=== PATIENT | female | born 1985 | race Caucasian/White ===

== ENCOUNTER 2018-08-06 09:07 | Day surgery (SDC) | payer OTHER ==
[2018-08-05 17:37] VITALS: BMI 18.1
[2018-08-06] MEDS ORDERED: Doxycycline 100 MG CAP PO SCH (10:30)
[2018-08-06 10:32] LABS: #Eosinphils 0.1 thou/uL (0.0-0.7); #Lymphocytes 1.7 thou/uL (1.20-3.40); #Monocytes 0.3 thou/uL (0.11-0.59); #Neutrophils 2.2 thou/uL (1.40-6.50); %Basophils 0.4 % (0.0-1.0); %Eosinophils 1.6 % (0.0-10.0); %Lymphocytes 38.9 % (21.0-51.0); %Monocytes 6.8 % (0.0-10.0); %Neutrophils 52.3 % (42.0-75.0); Hemoglobin 14.1 g/dL (12.0-16.0); Mean Corpuscular HGB CONC 33.7 g/dL (32.0-36.0); Mean Corpuscular Hemoglobin 31.6 pg (27.0-31.0); Mean Corpuscular Volume 93.7 fL (78.0-98.0); Mean Platelet Volume 9.1 fL (7.4-10.4); Platelet Count 187 thou/uL (130-400); RBC Distribution Width 11.3 % (11.5-14.5); Red Blood Cell (RBC) Count 4.48 mill/uL (4.20-5.40); White Blood Cell (WBC) Count 4.3 thou/uL (4.8-10.8)
[2018-08-06] MEDS ORDERED: Fentanyl 100 MCG/2 ML VIAL ONE (10:56)
[2018-08-06] MEDS ORDERED: Midazolam HCl 2 mg/2 ml Vial ONE (11:40)
--- NOTE | 2018-08-06 19:24 | OP ---
DATE OF PROCEDURE: 08/06/2018 PREOPERATIVE DIAGNOSIS: Missed at 8 weeks. POSTOPERATIVE DIAGNOSIS: Missed at 8 weeks. PROCEDURES PERFORMED: Suction, dilation, and curettage. ANESTHESIA: General LMA. 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 PATHOLOGY: Products of conception. ESTIMATED BLOOD LOSS: 75 mL. URINE OUTPUT: 10 mL of clear urine at the beginning. INTRAVENOUS FLUIDS: 1 L of crystalloid. COMPLICATIONS: None. DRAINS: None. FINDINGS: Uterus mobile, midposition uterus, 6 weeks in size, some amount of products of conception on suction curettage. No active bleeding following the procedure. OPERATIVE TECHNIQUE: The patient was taken to the operating room, where general anesthesia was obtained without difficulty. The patient was prepped and draped in a sterile fashion in the dorsal lithotomy position. A speculum was placed in the vagina. The anterior lip of the cervix was grasped with a single-tooth tenaculum. The cervix was then dilated with Og dilators to #18-Honduran. A 7 mm suction curette was assembled and the suction machine was then tested and turned to a maximum pressure of 55 mmHg. The 7 mm suction curette was then passed into the uterine cavity and suction applied and using a circular motion with the suction curette, the products of conception were aspirated out of the uterine cavity and sent for final pathology. Pass was performed x2. Following this, sharp curettage was performed to the uterine tierney until a gritty texture was noted. Repeat suction was performed x2 passes. Scant blood and no tissue passed on this subsequent passing. Sharp curettage was again performed to ensure the gritty texture was noted and bleeding had significantly slowed down and the uterus was felt to contract down. The cervix was then observed for approximately 1 minute. There was no active bleeding from the cervix. The tenaculum was removed out of the cervix. The tenaculum site was hemostatic with a silver nitrate administration, and all instruments were removed from the vagina. The patient tolerated the procedure well. Sponge and needle counts were correct x2. The patient was taken to recovery room in stable condition. The patient received doxycycline 100 mg prior to the procedure. Job ID: [id number]
[2018-08-06] MEDS ORDERED: Lidocaine 1% PF 5 ML VIAL ONE (20:09)
[2018-08-06] MEDS ORDERED: Ketorolac Tromethamine 30 MG/ML VIAL ONE (20:09)
[2018-08-06] MEDS ORDERED: Ondansetron PF 4 MG/2 ML Vial ONE (20:09)
[2018-08-06] MEDS ORDERED: Dexamethasone 20 MG/5 ML VIAL ONE (20:09)
[2018-08-06] MEDS ORDERED: PROPOFOL 200 MG/20 ML VIAL ONE (20:09)
== END 2018-08-06 14:23 | disposition home or self-care (01) ==
LOC: SDC 09:07
PROVIDERS: ATTEND Student in an Organized Health Care Education/Training Program
PROC: 10D17ZZ Extraction of Products of Conception, Retained, Via Natural or Artificial Opening (ICD-10-PCS; principal; 2018-08-06)
DX: O02.1 Missed abortion (principal); G43.909 Migraine, unspecified, not intractable, without status migrainosus
CPT/HCPCS: 85025; 86850; 86870; 86900; 86901; 88305; J1100; J1885; J2001; J2250; J2405; J2704; J3010